=== PATIENT | male | born 1995 | race Caucasian/White ===

== ENCOUNTER 2017-05-08 06:22 | Emergency (ER) | payer OTHER ==
[2017-05-08 07:44] VITALS: BP 135/80
--- NOTE | 2017-05-08 10:28 | CR ---
INDICATION: Trauma right chest. CHEST: PA and lateral views of the chest revealed a very minimal dextroconcave scoliosis at the lower thoracic spine. Heart, mediastinum, and bony thorax were otherwise unremarkable. An active infiltrate, effusion, contusion, or pneumothorax was not identified. IMPRESSION: No acute process. Very minimal scoliosis. MTDD
--- NOTE | 2017-05-08 10:29 | CR ---
INDICATION: Dropped heavy object on leg at work. RIGHT FEMUR: Four views of the right femur were obtained and revealed no evidence of an acute fracture, dislocation, or other significant bone or joint abnormality. DARIO
--- NOTE | 2017-05-18 09:12 | ER ---
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 This caused pain and trauma to his right proximal thigh, anteromedially. He has moderate pain. He notes the rack's weight was approximately 25 pounds, and there was 50-plus pounds of equipment that was being treated (probably plated) at [employer]. The patient denies previous injuries. ALLERGIES: Denies. MEDICATIONS: Denies. PAST MEDICAL HISTORY: Denies diabetes, heart disease, high blood pressure, or other serious illnesses. REVIEW OF SYSTEMS: Negative, except for those noted today. PHYSICAL EXAMINATION: VITAL SIGNS: Blood pressure 144/81 and repeated 135/80, heart rate regular at 86, respirations 18, and oxygen saturation 100%. The patient has pain in the right anterior proximal femur and soft tissue. HEENT: The patient is alert. CONSTITUTIONAL: He has moderate discomfort. A fairly stoic man. HEENT: TMs negative. Pharynx without abnormality. NECK: No thyromegaly or masses in neck. No cervical adenopathy. LUNGS: Clear to auscultation without rales, rhonchi, or wheezes. No chest wall pain. HEART: S1 and S2. No murmur. ABDOMEN: Soft. No guarding. No abdominal discomfort. GROIN: Without abnormality. MUSCULOSKELETAL: Right thigh superficial abrasion without ecchymosis or swelling, but mild tenderness noted with palpation. No induration or mass demonstrated. Femoral, popliteal, dorsalis pedis pulses, and posterior tibialis pulses are intact. No swelling of right lower extremity. IMAGING: The patient is concerned about contusion to his chest. A chest x-ray was performed and was negative. Right femur x-ray: No evidence for acute fractures, dislocation, or bone or joint abnormality. ASSESSMENT: 1. Contusion, right thigh muscles. 2. No compromised vascular status. 3. No suggested potential for compartment syndrome. 4. Mild limp with walking. PLAN: The patient dismissed. Advised to increase activity as tolerated. Ice to right thigh. Off work today. 1000 mg of Tylenol, 600 mg of ibuprofen every 6 hours. Follow up with doctor in 3 to 5 days. The patient did not require a tetanus shot. /[id number] FRANCA/EMMA
== END 2017-05-08 07:45 | disposition home or self-care (01) ==
LOC: FB.ED 06:22
DX: S70.11XA Contusion of right thigh, initial encounter (principal); W22.8XXA Striking against or struck by other objects, initial encounter
CPT/HCPCS: 71020; 73552-RT; 99283

== ENCOUNTER 2017-05-21 12:47 | Emergency (ER) | payer OTHER ==
[2017-05-21] MEDS ORDERED: Lidocaine 1% 20 ML MDV INFILT ONE (12:48)
--- NOTE | 2017-05-21 13:34 | EDM.PDOC ---
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 There is minor active bleeding. He has FROM and no sensory impairment. His tetanus vax status is current. - Related Data Allergies Allergy/AdvReac Type Severity Reaction Status Date / Time No Known Allergies Allergy Verified 05/21/17 12:55 Home Meds: Home Meds NK [No Known Home Meds] 05/08/17 [History] Past Medical History - Past Health History Medical/Surgical History: Denies Medical/Surgical History Psychiatric History: Reports: Other (See Below) (SIBs about 8 years ago) Social & Family History - Tobacco Use Smoking Status *Q: Current Every Day Smoker Years of Tobacco use: 2 Packs/Tins Daily: 1 Used Tobacco, but Quit: No Second Hand Smoke Exposure: No - Caffeine Use Caffeine Use: Reports: Coffee, Energy Drinks, Soda - Recreational Drug Use Recreational Drug Use: No ED ROS GENERAL - Review of Systems Review Of Systems: ROS reveals no pertinent complaints other than HPI. ED EXAM, SKIN/RASH Exam: See Below Exam Limited By: No Limitations General Appearance: Alert, WD/WN, No Apparent Distress Head: Normocephalic Neck: Normal Inspection Respiratory/Chest: Lungs Clear Cardiovascular: Regular Rate, Rhythm Back Exam: Normal Inspection Extremities: Normal Range of Motion, Non-Tender, No Pedal Edema, Normal Capillary Refill, Other (2 cm laceration to dorsum R hand) Neurological: Alert, Oriented, CN II-XII Intact, Normal Cognition, Normal Gait, No Motor/Sensory Deficits Psychiatric: Normal Affect, Normal Mood Skin: Warm, Dry, Normal Color, Other (2 cm laceration to dorsum R hand) Lymphatic: No Adenopathy ED SKIN PROCEDURES - Laceration/Wound Repair Right Dorsal Hand Lac/Wound length In cm: 2.0 Appearance: Subcutaneous, Clean Distal NVT: Neuro & Vascular Intact, No Tendon Injury Anesthetic Type: Local Local Anesthesia - Lidocaine (Xylocaine): 2% Plain Local Anesthetic Volume: 2cc Exploration/Debridement/Repair: Wound Explored, No Foreign Material Found Closed with: Sutures Suture Size: 4-0 # of Sutures: 4 Suture Type: Nylon, Interrupted, Simple Sterile Dressing Applied: Nurse Tetanus Status Addressed: Yes Complications: No Course - Vital Signs Text/Narrative:: Patient tolerated procedure well. Last Recorded V/S: Last Vital Signs Temp 36.7 C 05/21/17 12:56 Pulse 75 05/21/17 12:56 Resp 18 05/21/17 12:56 BP 129/45 L 05/21/17 12:56 Pulse Ox 98 05/21/17 12:56 Departure - Departure Time of Disposition: 13:33 Disposition: Home, Self-Care 01 Condition: Good Clinical Impression: Laceration of right hand Qualifiers: Encounter type: initial encounter Foreign body presence: without foreign body Qualified Code(s): S61.411A - Laceration without foreign body of right hand, initial encounter - Discharge Information Instructions: Laceration Care, Adult, [id number] Forms: ED Department Discharge Additional Instructions: Keep clean and dry. Wash gently with soap and water twice daily and apply a bandaid. Call make an appointment with your doctor to have stitches removed in 7 days. - Problem List & Annotations (1) Laceration of right hand SNOMED Code(s): 995363319 Code(s): S61.411A - LACERATION WITHOUT FOREIGN BODY OF RIGHT HAND, INIT ENCNTR Status: Acute Annotation/Comment:: Routine wound cares, and SR in 10 days. Qualifiers: Encounter type: initial encounter Foreign body presence: without foreign body Qualified Code(s): S61.411A - Laceration without foreign body of right hand, initial encounter - Problem List Review Problem List Initiated/Reviewed/Updated: Yes - Assessment/Plan Plan: Follow up with PCP in 10 days.
[2017-05-21 13:38] VITALS: BP 127/56
== END 2017-05-21 13:30 | disposition home or self-care (01) ==
LOC: FB.ED 12:47
DX: S61.411A Laceration without foreign body of right hand, initial encounter (principal); F17.210 Nicotine dependence, cigarettes, uncomplicated; X58.XXXA Exposure to other specified factors, initial encounter
CPT/HCPCS: 12001; 99283; A4217